=== PATIENT | female | born 1935 | race Caucasian/White ===

== ENCOUNTER 2017-01-04 23:41 | Emergency (ER) | payer OTHER, MEDICARE ==
[~2017-01-04] VITALS: Ht 157.5 cm; Wt 52.0 kg
[~2017-01-04 23:41] MED LIST: RANITIDINE HCL150 M1 PO; ZOFRAN4 MG PO
[2017-01-05] MEDS ORDERED: NORCO 5/3251 TABLET PO (03:38)
[2017-01-05 03:59] VITALS: BP 153/100
[2017-01-05] MEDS ORDERED: FIORINAL 50-321 EACH PO (19:10)
[2017-01-05] MEDS ORDERED: LABETALOL HCL100 MG PO (19:11)
== END 2017-01-05 03:59 | disposition home or self-care (01) ==
LOC: EME 23:41
DX: M79.651 Pain in right thigh (principal); I10 Essential (primary) hypertension
CPT/HCPCS: 73502; 73552; 99281; 99283

== ENCOUNTER 2017-01-05 17:13 | Inpatient (IN) | payer OTHER, MEDICARE ==
[~2017-01-05] VITALS: Ht 167.6 cm; Wt 69.0 kg
[~2017-01-05 17:13] MED LIST changes: +NORCO 5/3251 TABLET PO
[2017-01-05 17:53] LABS: BASOPHIL COUNT 0.1 K/uL (0-0.1); EOSINOPHIL (%) 1.5 % (0-5); EOSINOPHIL COUNT 0.2 K/uL (0-0.3); IMMATURE GRANULOCYTE (%) 0.4 % (0.0-0.7); IMMATURE GRANULOCYTE COUNT 0.1 K/uL; INSTRUMENT ABS NEUTROPHIL CT 9.3 K/uL; LYMPHOCYTE COUNT 1.3 K/uL (1.0-2.8); MCHC 33.3 G/DL (30.0-36.0); MCV 87.1 FL (83-99); MEAN PLAT.VOLUME 10.6 uM^3 (9.5-12.4); MONOCYTE (%) 9.7 % (3-12); MONOCYTE COUNT 1.2 K/uL (0-0.8); NEUTROPHIL (%) 77.2 % (45-76); NEUTROPHIL COUNT 9.3 K/uL (1.8-6.4); PLATELET COUNT 198 K/uL (156-360); RBC DIS.WIDTH-CV 13.5 % (11.8-14.6); RBC DIS.WIDTH-SD 43.3 % (39-53); RED BLOOD COUNT 4.48 M/uL (3.80-5.20); WHITE BLOOD COUNT 12.1 K/uL (4.1-10.2)
[2017-01-05 18:13] LABS: TROP-I INTERPRETATION NEGATIVE; TROPONIN-I 0.03 ng/mL (0.0-0.30)
[2017-01-05 18:14] LABS: CHLORIDE 108 mEq/L (99-109); D-DIMER ELISA 3.83 mg/L FEU (< 0.57); SODIUM 141 mEq/L (136-147)
[2017-01-05 18:16] LABS: GLUCOSE 96 mg/dL (70-99)
[2017-01-05 18:17] LABS: ANION GAP 13 MEQ/L (2-14)
[2017-01-05 18:18] LABS: TOTAL BILIRUBIN 0.6 mg/dL (0.0-1.0)
[2017-01-05 18:19] LABS: ALKALINE PHOSPHATASE 124 IU/L (3-129)
[2017-01-05 18:20] LABS: GFR ESTIMATE (CALCULATED) 50 mL/min/
[2017-01-05 18:21] LABS: UREA NITROGEN (BUN) 24 mg/dL (9-23)
[2017-01-05] MEDS ORDERED: FIORINAL 50-321 EACH PO (19:10)
[2017-01-05] MEDS ORDERED: LABETALOL HCL100 MG PO (19:11)
[2017-01-05 22:02] VITALS: BP 134/97
[2017-01-05 22:10] VITALS: BP 169/94
[2017-01-05 22:17] LABS: ADD MIUA? YES; BILIRUBIN NEGATIVE; BLOOD SMALL; COLOR YELLOW ((YELLOW)); GLUCOSE (STRIP) NEGATIVE; KETONES 20; LEUKOCYTES SMALL; NITRITE NEGATIVE; PROTEIN (STRIP) 30; SPECIFIC GRAVITY 1.038 (1.000-1.030); UROBILINOGEN 0.2 MG/DL (0.2-1.0)
[2017-01-05 22:33] LABS: BACTERIA NONE SEEN /HPF; EPITHELIAL CELLS RARE /HPF; MUCUS TRACE /LPF; RED BLOOD CELLS 0-5 /HPF (0-5); UCUL ADDED? NO; WHITE BLOOD CELLS 0-5 /HPF (0-5)
[2017-01-05 22:34] VITALS: BP 149/93
[2017-01-05 22:48] LABS: MAGNESIUM 1.9 mg/dL (1.3-2.7)
[2017-01-05 23:02] VITALS: BP 143/69
[2017-01-05 23:43] VITALS: BP 153/94
[2017-01-06] VITALS (11 sets, daily range): BP systolic 141–169; BP diastolic 63–90
[2017-01-06 01:01] LABS: TROP-I INTERPRETATION NEGATIVE; TROPONIN-I 0.03 ng/mL (0.0-0.30)
[2017-01-06 05:53] LABS: HEMATOCRIT 37.3 % (36.0-46.0); MCH 29.1 PG (29.0-34.0); MCV 88.4 FL (83-99); MEAN PLAT.VOLUME 10.9 uM^3 (9.5-12.4); PLATELET COUNT 192 K/uL (156-360); RBC DIS.WIDTH-CV 13.7 % (11.8-14.6); RBC DIS.WIDTH-SD 44.5 % (39-53); RED BLOOD COUNT 4.22 M/uL (3.80-5.20)
[2017-01-06 05:56] LABS: TROP-I INTERPRETATION NEGATIVE; TROPONIN-I 0.04 ng/mL (0.0-0.30)
[2017-01-07] VITALS (7 sets, daily range): BP systolic 139–190; BP diastolic 69–93
[2017-01-08] VITALS (7 sets, daily range): BP systolic 136–187; BP diastolic 79–101
[2017-01-08 07:46] LABS: DIGOXIN 1.5 ng/mL (0.8-2.0)
[2017-01-08 09:01] LABS: ANION GAP 11 MEQ/L (2-14); CHLORIDE 106 MEQ/L (99-109); GFR ESTIMATE (CALCULATED) > 59 mL/min/; GLUCOSE 110 mg/dL (70-99); POTASSIUM 3.6 MEQ/L (3.7-5.4); SAMPLE HEMOLYSIS CHECK 0; SAMPLE ICTERIC CHECK 0; SAMPLE LIPEMIA CHECK 0; SODIUM 139 MEQ/L (136-147); UREA NITROGEN (BUN) 13 mg/dL (9-23)
[2017-01-08 09:20] LABS: HEMATOCRIT 40.2 % (36.0-46.0); MCH 28.5 PG (29.0-34.0); MCHC 32.6 G/DL (30.0-36.0); MCV 87.6 FL (83-99); MEAN PLAT.VOLUME 11.1 uM^3 (9.5-12.4); PLATELET COUNT 202 K/uL (156-360); RBC DIS.WIDTH-CV 13.5 % (11.8-14.6); RBC DIS.WIDTH-SD 43.8 % (39-53); RED BLOOD COUNT 4.59 M/uL (3.80-5.20)
[2017-01-09 03:27] VITALS: BP 143/79
[2017-01-09 06:51] LABS: ANION GAP 9 MEQ/L (2-14); CHLORIDE 106 MEQ/L (99-109); GFR ESTIMATE (CALCULATED) > 59 mL/min/; GLUCOSE 110 mg/dL (70-99); POTASSIUM 3.8 MEQ/L (3.7-5.4); SAMPLE HEMOLYSIS CHECK 0; SAMPLE ICTERIC CHECK 0; SAMPLE LIPEMIA CHECK 0; SODIUM 142 MEQ/L (136-147); UREA NITROGEN (BUN) 15 mg/dL (9-23)
[2017-01-09 07:26] VITALS: BP 180/93
[2017-01-09 07:37] LABS: POINT-OF-CARE METER ID UU13113698
[2017-01-09 10:14] VITALS: BP 119/76
[2017-01-09] MEDS ORDERED: DILTIAZEM 24HR180 MG PO (11:11)
[2017-01-09] MEDS ORDERED: ELIQUIS5 MG PO (11:12)
[2017-01-09] MEDS ORDERED: LABETALOL HCL200 MG PO (11:12)
[2017-01-09] MEDS ORDERED: BISACODYL5 MG PO (11:39)
[2017-01-09] MEDS ORDERED: TYLENOL REGULA325 MG PO (11:39)
[2017-01-09] MEDS ORDERED: SENNA PLUS TAB1 EACH PO (11:39)
[2017-01-09 11:40] LABS: POINT-OF-CARE METER ID UU13113698
[2017-01-09 16:00] VITALS: BP 144/75
[2017-01-09 16:24] LABS: POINT-OF-CARE METER ID UU13113698
[2017-01-09 19:40] VITALS: BP 155/82
[2017-01-09 20:49] LABS: POINT-OF-CARE METER ID UU14174216
[2017-01-10] VITALS (7 sets, daily range): BP systolic 129–186; BP diastolic 68–97
[2017-01-11 05:33] VITALS: BP 142/85
[2017-01-11 06:48] VITALS: BP 160/79
[2017-01-11 09:04] LABS: HEMATOCRIT 39.5 % (36.0-46.0); MCH 29.7 PG (29.0-34.0); MCHC 33.4 G/DL (30.0-36.0); MEAN PLAT.VOLUME 11.3 uM^3 (9.5-12.4); PLATELET COUNT 184 K/uL (156-360); RBC DIS.WIDTH-CV 14.1 % (11.8-14.6); RBC DIS.WIDTH-SD 45.3 % (39-53); RED BLOOD COUNT 4.44 M/uL (3.80-5.20); WHITE BLOOD COUNT 7.9 K/uL (4.1-10.2)
[2017-01-11 09:25] LABS: ANION GAP 10 MEQ/L (2-14); CHLORIDE 104 MEQ/L (99-109); GFR ESTIMATE (CALCULATED) > 59 mL/min/; GLUCOSE 161 mg/dL (70-99); POTASSIUM 3.6 MEQ/L (3.7-5.4); SAMPLE HEMOLYSIS CHECK 0; SAMPLE ICTERIC CHECK 0; SAMPLE LIPEMIA CHECK 0; SODIUM 140 MEQ/L (136-147)
[2017-01-11 09:26] LABS: UREA NITROGEN (BUN) 23 mg/dL (9-23)
[2017-01-11 11:47] VITALS: BP 134/81
[2017-01-11 16:00] VITALS: BP 130/73
[2017-01-11 19:20] VITALS: BP 149/84
[2017-01-12 00:25] VITALS: BP 145/84
[2017-01-12 04:00] VITALS: BP 160/90
[2017-01-12 09:13] VITALS: BP 147/82
[2017-01-12 11:59] VITALS: BP 120/73
[2017-01-12] MEDS ORDERED: FIORINAL 50-321 EACH PO (13:47)
== END 2017-01-12 16:08 | DRG 309 ==
LOC: EME 17:13 → 4EAST 21:41 → EDOF 21:41 → 4EAST 23:01
PROVIDERS: Emergency Medicine; Hospitalist; Internal Medicine Cardiovascular Disease; Nurse Practitioner Family; Physician Assistant
DX: I48.91 Unspecified atrial fibrillation (principal); R55 Syncope and collapse; R11.0 Nausea; J98.11 Atelectasis; I10 Essential (primary) hypertension; W18.11XA Fall from or off toilet without subsequent striking against object, initial encounter; R29.6 Repeated falls; I70.0 Atherosclerosis of aorta; M19.90 Unspecified osteoarthritis, unspecified site; Z90.49 Acquired absence of other specified parts of digestive tract
CPT/HCPCS: 70450; 71010; 71275; 73502; 73552; 73560; 80048; 80053; 80162; 81003; 82948; 83735; 84484; 85025; 85027; 85379; 93005; 93306; 93880; 93970; 97530 GO; 99281; 99283; 99285; J1650; J2405; J7030; J7040; J7050

== ENCOUNTER 2017-02-06 10:18 | Emergency (ER) | payer OTHER ==
[~2017-02-06] VITALS: Ht 167.6 cm; Wt 61.0 kg
[~2017-02-06 10:18] MED LIST changes: +BISACODYL5 MG PO; +DILTIAZEM 24HR180 MG PO; +ELIQUIS5 MG PO; +FIORINAL 50-321 EACH PO; +LABETALOL HCL100 MG PO; +LABETALOL HCL200 MG PO; +SENNA PLUS TAB1 EACH PO; +TYLENOL REGULA325 MG PO
[2017-02-06 12:24] LABS: BASOPHIL COUNT 0.1 K/uL (0-0.1); EOSINOPHIL (%) 3.2 % (0-5); EOSINOPHIL COUNT 0.3 K/uL (0-0.3); HEMATOCRIT 41.3 % (36.0-46.0); IMMATURE GRANULOCYTE (%) 0.4 % (0.0-0.7); INSTRUMENT ABS NEUTROPHIL CT 6.3 K/uL; LYMPHOCYTE COUNT 1.1 K/uL (1.0-2.8); MCH 29.6 PG (29.0-34.0); MCHC 33.7 G/DL (30.0-36.0); MCV 88.1 FL (83-99); MEAN PLAT.VOLUME 10.1 uM^3 (9.5-12.4); MONOCYTE (%) 6.9 % (3-12); MONOCYTE COUNT 0.6 K/uL (0-0.8); NEUTROPHIL (%) 75.3 % (45-76); NEUTROPHIL COUNT 6.3 K/uL (1.8-6.4); PLATELET COUNT 196 K/uL (156-360); RBC DIS.WIDTH-CV 13.6 % (11.8-14.6); RBC DIS.WIDTH-SD 43.8 % (39-53); RED BLOOD COUNT 4.69 M/uL (3.80-5.20); WHITE BLOOD COUNT 8.4 K/uL (4.1-10.2)
[2017-02-06 12:33] LABS: PROTHROMBIN TIME 10.5 (9.2-11.2)
[2017-02-06 12:35] LABS: CHLORIDE 103 mEq/L (99-109); POTASSIUM 4.4 mEq/L (3.7-5.4); SODIUM 135 mEq/L (136-147)
[2017-02-06 12:37] LABS: GLUCOSE 114 mg/dL (70-99)
[2017-02-06 12:38] LABS: ANION GAP 14 MEQ/L (2-14)
[2017-02-06 12:39] LABS: TOTAL BILIRUBIN 0.7 mg/dL (0.0-1.0)
[2017-02-06 12:40] LABS: ALKALINE PHOSPHATASE 119 IU/L (3-129)
[2017-02-06 12:41] LABS: GFR ESTIMATE (CALCULATED) 45 mL/min/
[2017-02-06 12:42] LABS: DIRECT BILIRUBIN 0.2 mg/dL (0.0-0.3); UREA NITROGEN (BUN) 26 mg/dL (9-23)
[2017-02-06 12:48] LABS: TROP-I INTERPRETATION NEGATIVE; TROPONIN-I < 0.01 ng/mL (0.0-0.30)
[2017-02-06] MEDS ORDERED: ANTIVERT25 MG PO (14:07)
[2017-02-06 15:43] VITALS: BP 120/80
== END 2017-02-06 15:46 | disposition home or self-care (01) ==
LOC: EME 10:18
PROVIDERS: Emergency Medicine
DX: R42 Dizziness and giddiness (principal); I10 Essential (primary) hypertension; Z90.49 Acquired absence of other specified parts of digestive tract
CPT/HCPCS: 71020; 80048; 80076; 83880; 84484; 85025; 85610; 93005; 99281; 99284